=== PATIENT | female | born 1960 | race Two or more races ===

== ENCOUNTER 2025-06-24 09:02 | Emergency (ER) | payer MEDICAID, SELFPAY ==
[2025-06-24 09:13] VITALS: BP 122/70; PULSE 73; RESP 16; TEMP 36.8; O2SAT 96; BMI 33.7
--- NOTE | 2025-06-24 09:19 | PD.EDHA ---
ED Headache RME/HPI General Chief Complaint: Headache Stated Complaint: HEADACHE X 3 DAYS, VOMITING, BLEEDING ULCERS? Time Seen by Provider: 06/24/25 09:05 Arrival date/time: 06/24/25 09:02 RME / HPI RME / HPI Narrative: See [facility] for Dr. Nicholas's HPI Documentation. Related Data Previous Rx's ?Medication ?Instructions ?Recorded acetaminophen 300 mg-codeine 30 mg 2 tab PO Q8H PRN pain #20 tabs 06/24/25 tablet cefdinir 300 mg capsule 300 mg PO BID #14 caps 06/24/25 famotidine 40 mg tablet 40 mg PO .bedtime #30 tabs 06/24/25 omeprazole 40 mg capsule,delayed 40 mg PO QDAY #30 caps 06/24/25 release ondansetron 4 mg disintegrating 4 mg PO TID PRN nausea and 06/24/25 tablet vomiting 30 days #10 tabs Allergies Allergy/AdvReac Type Severity Reaction Status Date / Time No Known Allergies Allergy Verified 06/24/25 09:07 Review of Systems Review of Systems Systems Reviewed: All systems reviewed, normal except as documented Past Medical History Social History SMOKING STATUS: Never smoker SUBSTANCE USE: does not use ALCOHOL: Never ED Exam Narrative Physical exam: See [facility] for Dr. Nicholas's HPI Documentation. Course Quality Measures none Orders Category Date Time Status CT cervical spine wo con Stat Exams 06/24/25 09:[address] chest abdomen pelvis wo Stat Exams 06/24/25 09:[address] head/brain wo con Stat Exams 06/24/25 09:20 Completed US gall bladder Stat Exams 06/24/25 09:20 Completed Amylase Stat Lab 06/24/25 11:08 Completed BNP [B-Type Natriuretic Peptide] Stat Lab 06/24/25 09:36 Completed Bilirubin,Direct Stat Lab 06/24/25 11:08 Completed CBC Stat Lab 06/24/25 09:36 Completed CMP [Comprehensive Metabolic Panel] Stat Lab 06/24/25 11:08 Completed CRP [C-Reactive Protein] Stat Lab 06/24/25 11:08 Completed ESR [Sed Rate (ESR)] Stat Lab 06/24/25 09:36 Completed Hemoglobin A1C [Glycohemoglobin w (eAG)] Stat Lab 06/24/25 09:36 Completed Lipase Stat Lab 06/24/25 11:08 Completed Magnesium Stat Lab 06/24/25 11:08 Completed Procalcitonin Stat Lab 06/24/25 11:08 Completed TSH [Thyroid Stimulating Hormone] Stat Lab 06/24/25 11:08 Completed Troponin I Stat Lab 06/24/25 11:08 Completed UA, C/S IF [Urinalysis, C/S if Indicated] Stat Lab 06/24/25 09:55 Completed Urine Culture Stat Lab 06/24/25 09:55 Received ACETAMINOPHEN w/COD 300-30 [Tylenol w/Cod #3] Med 06/24/25 09:19 Discontinued 2 tab PO X1 ONE Ondansetron Odt [Zofran Odt] Med 06/24/25 09:19 Discontinued 4 mg PO X1 ONE cefTRIAXone [Rocephin] 1,000 mg Med 06/24/25 12:10 Discontinued Lidocaine 1% Pf Vial 5ml [Xylocaine 1% 5 ml] 2.1 ml IM X1 Vital Signs Vital signs: Vital Signs Temperature 98.3 F 06/24/25 09:13 Pulse Rate 73 06/24/25 09:13 Respiratory Rate 16 06/24/25 09:13 Blood Pressure 122/70 06/24/25 09:13 Pulse Oximetry (%) 96 06/24/25 09:13 Oxygen Delivery Method Room Air 06/24/25 09:13 Headache MDM Narrative MDM Narrative:: This section includes all my notes and documentations, including HPI, PE, and ED course. Leobardo Nicholas MD HPI: 65-year-old female here with several days of severe headache and abdominal pain and back pain. Has trouble localizing her abdominal pain and back pain. Has trouble describing the quality and quantity of her pain. Uncertain of exacerbating factors or relieving factors. No fever or chills. No nausea or vomiting. No speech or visual impairment. No loss of power in arms or legs. No other complaints. ROS: All negative except as documented in HPI. Physical Exam: General: Alert and oriented. No acute distress when moving still. Eyes: Conjunctivae and lids clear. EOMI. PERRL. ENT: No nasal congestion. Pharynx normal. Tympanic membrane normal bilaterally. Neck: Supple. No carotid bruit. No JVD. Heart: RRR. Lungs: No respiratory distress. Good air movement. No rhonchi, wheezing, rales. Chest: No tenderness. Abdomen: Soft and nontender. Normal bowel sounds. No distension. No rebound or guarding. Back: No CVA tenderness. Legs: No clubbing, cyanosis, edema. Skin: Warm and dry. Neuro: Alert and oriented X 3. Cranial Nerves II-XII grossly intact. No peripheral motor deficits. I reviewed all diagnostic test results: My review of the cervical CT report is no fracture. My review of the chest/abdomen/pelvis CT report is probable reflux esophagitis. My review of the head CT report is NAD. My review of the gallbladder US report is NAD. Blood tests unremarkable. UA showed leukocyte esterase, 10 RBC, 11 WBC, and 3+ bacteria. At this point, diagnoses include: Migraine headache UTI GERD Treatment here included: Zofran ODT 4 mg Two Tylenol #3 Rocephin 1 g IM Significant improvement noted. Recommended outpatient care. Based on my best medical judgment, made decision no further evaluation or treatment indicated at this time. Patient understands and agrees to the discharge instructions customized and printed, see below. Discharge instructions from Dr. Nicholas: 1. After evaluation, you were treated for migraine headache and urine infection. There is no life-threatening condition. Such as stroke or brain tumor or heart attack. 2. Take cefdinir to kill the germs causing the infection. 3. For good hydration, increase oral fluid and maintain clear urine. If dark or yellow, increase oral fluid. Zofran for nausea/vomiting. Tylenol with codeine for severe pain. Take omeprazole and famotidine as prescribed. 4. See a private doctor on 06/25/2025 for recheck. Ask to review all test results and official radiology reports, to make sure you receive all necessary follow-ups and monitoring, including final urine culture results. Ask for help with more investigation not available here in the ER, to make sure there is no other serious underlying conditions. To make sure there is no serious underlying heart condition, ask to help you get more tests for your heart that cannot be done here in the ER. Such as Holter Monitor (cardiac monitoring at home from a day to even a month), heart stress test (on treadmill or with medication), echocardiogram (imaging of your heart structures), heart catherization (checking for blockages in your heart arteries), and a referral to see a Scientific Process Operator. To make sure there is no serious intra-abdominal condition, ask for help with more investigation not available here in the ER. Such as EGD or scoping the stomach, colonoscopy or scoping the colon, and referral to see match maker. Ask for referral to see neurologist. 5. Seek immediate medical care with worsening, fever, or with any concerns. Instrucciones de lynne del Dr. Nicholas: 1. Despu?s de la evaluaci?n, se le trat? por migra?a e infecci?n urinaria. No presenta ninguna afecci?n que ponga en peligro zavaleta minnie. [place] un derrame cerebral, un tumor cerebral o un infarto. 2. [place] cefdinir para eliminar los g?rmenes que causan la infecci?n. 3. Para tomas buena hidrataci?n, aumente la ingesta de l?quidos y mantenga la orina santa. Si la orina est? oscura o amarilla, aumente la ingesta de l?quidos. Zofran para las n?useas y los v?mitos. Tylenol con code?na para el dolor intenso. [place] omeprazol y famotidina seg?n lo recetado. 4. Consulte con un m?dico privado el 06/25/2025 para tomas revisi?n. Solicite revisar todos los resultados de las pruebas y los informes radiol?gicos oficiales para asegurarse de recibir todo el seguimiento y la monitorizaci?n necesarios, incluidos los resultados finales del cultivo de orina. Solicite ayuda para realizar m?s investigaciones que no est?n disponibles aqu? en la brigitte de emergencias, para asegurarse de que no existan otras afecciones subyacentes graves. Para descartar tomas afecci?n card?forrest subyacente grave, solicite que le realicen m?s pruebas card?acas que no se pueden realizar aqu? en la brigitte de emergencias. [place] un monitor Holter (monitorizaci?n card?forrest en casa lashay un d?a o incluso un mes), tomas prueba de esfuerzo card?aco (en cinta de correr o con medicaci?n), un ecocardiograma (im?genes de las estructuras del coraz?n), un cateterismo card?aco (para detectar obstrucciones en las arterias del coraz?n) y tomas derivaci?n a un cardi?logo. Para descartar tomas afecci?n intraabdominal grave, solicite ayuda para realizar m?s investigaciones que no est?n disponibles aqu? en la brigitte de emergencias. [place] tomas endoscopia digestiva lynne o tomas colonoscopia, y tomas derivaci?n a un gastroenter?logo. Solicite tomas derivaci?n a un neur?logo. 5. Busque atenci?n m?dica inmediata si los s?ntomas empeoran, si tiene fiebre o si tiene alguna otra preocupaci?n. Leobardo Nicholas MD Patient data External records reviewed:: [facility] previous records Clinical information provided by:: patient Social determinants that could affect healthcare access:: none Patient has the following chronic illnesses:: Denies any PMHx, surgeries, daily medications, or known allergies. How is presenting disease/condition affected by chronic disease/condition?: no chronic disease Evaluation data The following diagnostics were reviewed and interpreted by me:: lab results and radiology exam(s) Lab and/or radiology exams considered but not ordered:: none Interpretation Summary: I reviewed all diagnostic test results: My review of the cervical CT report is no fracture. My review of the chest/abdomen/pelvis CT report is probable reflux esophagitis. My review of the head CT report is NAD. My review of the gallbladder US report is NAD. Blood tests unremarkable. UA showed leukocyte esterase, 10 RBC, 11 WBC, and 3+ bacteria. Medications / Prescriptions Medications or Prescriptions considered but not ordered:: none Medication administrations:: Medication Administration History Discontinued Medications Acetaminophen/Codeine Phosphate (Acetaminophen W/Cod 300-30 Tablet) 2 tab PO X1 ONE Stop: 06/24/25 09:20 Last Admin: 06/24/25 09:25 Dose: 2 tab Documented By: KARLA Ceftriaxone Sodium 1,000 mg/ (Lidocaine HCl 2.1 ml) 0 mg IM X1 ONE Stop: 06/24/25 12:11 Last Admin: 06/24/25 12:49 Dose: 1,000 mg Documented By: KARLA Ondansetron HCl (Ondansetron Odt 4 Mg Tabrap) 4 mg PO X1 ONE; Protocol Stop: 06/24/25 09:20 Last Admin: 06/24/25 09:25 Dose: 4 mg Documented By: KARLA Treatment here included: Zofran ODT 4 mg Two Tylenol #3 Rocephin 1 g IM Consultations Consultation(s) initiated? (list below): No Diagnosis Differential diagnosis headache: migraine, tension headache, subarachnoid hemorrhage, headache and sinusitis Most likely diagnosis given after review of the tests above:: Migraine headache UTI GERD Admission Indicated Admission indicated?: not indicated Explain why admission is indicated or not indicated:: With significant improvement and no condition needing emergent intervention, there was no indication for admission. Admission Request Was there a request for admission?: No Disposition Plan Disposition Plan: Discharge Discharge Attestation Discharge Attestation: The patient and all family members were given an opportunity to ask questions and understood the discharge instructions. Discharge instructions specifically effects, indications for sooner follow up or return to the emergency department, and the expected course of current diagnosis. Patient condition: Stable Discharge Plan Plan Patient Disposition: HOME (Self Care) Prescriptions/Referrals Prescriptions/Med Rec: New acetaminophen-codeine 300-30 mg tablet 2 tab PO Q8H MDD 6 PRN (Reason: pain) Qty: 20 0RF ondansetron 4 mg tablet,disintegrating 4 mg PO TID PRN (Reason: nausea and vomiting) 30 Days Qty: 10 0RF cefdinir 300 mg capsule 300 mg PO BID Qty: 14 0RF famotidine 40 mg tablet 40 mg PO .bedtime Qty: 30 0RF omeprazole 40 mg capsule,delayed release(DR/EC) 40 mg PO QDAY Qty: 30 0RF Referrals: Aletha Redman DIRECTOR PHARMACEUTICAL [Primary Care Provider] - In 1 week Problem List Clinical Impression: Migraine headache, UTI (urinary tract infection), GERD (gastroesophageal reflux disease) Patient/Caregiver Discharge Instructions Discharge Activity: activity as tolerated Education Materials: ED GERD (Adult), ED Headache, Migraine, Classic, ED CYSTITIS Female Adult Additional Instructions: Discharge instructions from Dr. Nicholas: 1. After evaluation, you were treated for migraine headache and urine infection. There is no life-threatening condition. Such as stroke or brain tumor or heart attack. 2. Take cefdinir to kill the germs causing the infection. 3. For good hydration, increase oral fluid and maintain clear urine. If dark or yellow, increase oral fluid. Zofran for nausea/vomiting. Tylenol with codeine for severe pain. Take omeprazole and famotidine as prescribed. 4. See a private doctor on 06/25/2025 for recheck. Ask to review all test results and official radiology reports, to make sure you receive all necessary follow-ups and monitoring, including final urine culture results. Ask for help with more investigation not available here in the ER, to make sure there is no other serious underlying conditions. To make sure there is no serious underlying heart condition, ask to help you get more tests for your heart that cannot be done here in the ER. Such as Holter Monitor (cardiac monitoring at home from a day to even a month), heart stress test (on treadmill or with medication), echocardiogram (imaging of your heart structures), heart catherization (checking for blockages in your heart arteries), and a referral to see a Scientific Process Operator. To make sure there is no serious intra-abdominal condition, ask for help with more investigation not available here in the ER. Such as EGD or scoping the stomach, colonoscopy or scoping the colon, and referral to see match maker. Ask for referral to see neurologist. 5. Seek immediate medical care with worsening, fever, or with any concerns. Instrucciones de lynne del Dr. Nicholas: 1. Despu?s de la evaluaci?n, se le trat? por migra?a e infecci?n urinaria. No presenta ninguna afecci?n que ponga en peligro zavaleta minnie. [place] un derrame cerebral, un tumor cerebral o un infarto. 2. [place] cefdinir para eliminar los g?rmenes que causan la infecci?n. 3. Para tomas buena hidrataci?n, aumente la ingesta de l?quidos y mantenga la orina santa. Si la orina est? oscura o amarilla, aumente la ingesta de l?quidos. Zofran para las n?useas y los v?mitos. Tylenol con code?na para el dolor intenso. [place] omeprazol y famotidina seg?n lo recetado. 4. Consulte con un m?dico privado el 06/25/2025 para tomas revisi?n. Solicite revisar todos los resultados de las pruebas y los informes radiol?gicos oficiales para asegurarse de recibir todo el seguimiento y la monitorizaci?n necesarios, incluidos los resultados finales del cultivo de orina. Solicite ayuda para realizar m?s investigaciones que no est?n disponibles aqu? en la brigitte de emergencias, para asegurarse de que no existan otras afecciones subyacentes graves. Para descartar tomas afecci?n card?forrest subyacente grave, solicite que le realicen m?s pruebas card?acas que no se pueden realizar aqu? en la brigitte de emergencias. [place] un monitor Holter (monitorizaci?n card?forrest en casa lashay un d?a o incluso un mes), tomas prueba de esfuerzo card?aco (en cinta de correr o con medicaci?n), un ecocardiograma (im?genes de las estructuras del coraz?n), un cateterismo card?aco (para detectar obstrucciones en las arterias del coraz?n) y tomas derivaci?n a un cardi?logo. Para descartar tomas afecci?n intraabdominal grave, solicite ayuda para realizar m?s investigaciones que no est?n disponibles aqu? en la brigitte de emergencias. [place] tomas endoscopia digestiva lynne o tomas colonoscopia, y tomas derivaci?n a un gastroenter?logo. [place] tomas derivaci?n a un neur?logo. 5. Busque atenci?n m?dica inmediata si los s?ntomas empeoran, si tiene fiebre o si tiene alguna otra preocupaci?n. Print Language: [place] Stand Alone Forms: Jamila Award Info., Patient Portal Info Letter
--- NOTE | 2025-06-24 09:20 | XR_ITS ---
Examination: CT cervical spine without contrast 2-D sagittal reconstructions 2-D coronal reconstructions 3-D reconstructions. Exam date and time: June 24, 2025, 1008 hours INDICATIONS: Severe neck pain beginning 3 days ago CTDI:vol (mGy) 16.5 DLP: (mGycm) 308 Technique: Multiple 2 mm axial sections of the cervical spine have been obtained. The coronal and sagittal reconstructions have been obtained. 3-D reconstructions have been obtained. Low dose protocols were performed. One or more of the following dose reduction techniques were used; automated exposure control, adjustment of the mA and/or KV according to patient size, use of iterative reconstruction technique. Findings: Axial sections demonstrate intact base of the skull. C1 exhibit satisfactory relationship to the odontoid. No acute cervical vertebral body fracture seen. Alignment posterior spinous processes satisfactory. No focal disc protrusion or significant neural foraminal stenosis Impression: No acute cervical fracture. No focal disc protrusion or significant neural foraminal stenosis Consider MRI cervical spine without contrast follow-up
--- NOTE | 2025-06-24 09:20 | XR_ITS ---
Examination: CT chest, without intravenous contrast. CT abdomen, without intravenous contrast. CT pelvis, without intravenous contrast. 2-D sagittal and coronal reconstructions. 3-D reconstructions. Date and time of exam: June 24, 2025, 1011 hours INDICATIONS: Gastrointestinal bleeding, chest and abdominal pain today CTDI vol (mgy) 13.9 DLP (MGycm) 909 Technique: Multiple CT images, 3.0 mm slice thickness, obtained chest, abdomen, pelvis, with the high-resolution 64 slice scanner.. Sagittal and coronal 2-D reconstructions are obtained. 3-D reconstructions Low dose protocols were performed. One or more of the following dose reduction techniques were used; automated exposure control, adjustment of the mA and/or KV according to patient size, use of iterative reconstruction technique. Findings: Fluid distended esophagus No thoracic aortic aneurysmal dilatation Pulmonary artery segments are not enlarged. No paratracheal tracheobronchial or bronchopulmonary adenopathy No pneumonia, pulmonary edema or pleural disease Retrocardiac gastric hernia with thickening of the mucosa at the gastroesophageal junction Severe fatty infiltration throughout the liver, liver is irregular in contour No splenic or focal liver lesion No pancreatic or adrenal mass Mild renal scar formation, no renal or ureteral calculi, no hydronephrosis Small fat-containing umbilical hernia Normal appendix Colonic diverticulosis, no diverticulitis Atrophic uterus Contracted urinary bladder Prominent osteopenia Grade 1 spondylolisthesis L5 on S1 IMPRESSION: Fluid distended esophagus with mucosal thickening at the gastro esophageal junction, consider reflux esophagitis and stricture at the gastroesophageal junction Recommend elective standard fluoroscopically guided esophagram follow-up No pneumonia, pulmonary edema or pleural disease Severe diffuse fatty infiltration throughout the liver Suspicious for primary hepatocellular disease versus cirrhosis Mild renal scar formation Normal appendix No bowel obstruction diverticulitis or free air
--- NOTE | 2025-06-24 09:20 | XR_ITS ---
Examination: CT brain head without contrast. 2-D sagittal coronal reconstructions Date and time of exam: June 24, 2025, 1008 hours INDICATIONS: Severe headache 3 days CTDI: vol (mGy): 45.7 DLP: (mGycm): 851 Technique: Multiple CT axial sections of the brain have been obtained, 5 mm slice thickness. Contrast has not been administered. 2-D sagittal, coronal reconstructions have been obtained Low dose protocols were performed. One or more of the following dose reduction techniques were used; automated exposure control, adjustment of the mA and/or KV according to patient size, use of iterative reconstruction technique. Findings: No significant ventricular enlargement. Intra-axial or extra-axial hemorrhage density is not seen. No mass effect or midline shift Basal cisterns are not remarkable. Fourth ventricle is midline. Cranial vault intact. Impression: Negative for acute hemorrhage, mass effect or midline shift As clinically warranted, if symptoms persist, consider MRI brain without contrast follow-up
--- NOTE | 2025-06-24 09:20 | XR_ITS ---
Examination: Abdomen sonogram, Limited Date and time of exam: June 24, 2025, 10:33 a.m. INDICATIONS: Vomiting right upper abdominal pain beginning 3 days ago Technique: Real-time hendrix scale transabdominal sonographic images of the upper abdomen obtained. Findings: Normal gallbladder Normal common bile duct 0.2 cm Pancreatic head 2.3 cm Liver 14.3 cm fatty infiltration Normal hepatopetal portal venous flow Patent IVC IMPRESSION: Normal gallbladder Normal common bile duct
[2025-06-24] MEDS: ACETAMINOPHEN w/COD 300-30 TABLET 2 TAB PO (09:25)
[2025-06-24] MEDS: ONDANSETRON ODT 4 MG TABRAP PO (09:25)
[2025-06-24 09:49] LABS: Basophils # (Auto) 0.0 Thou/mm3 (0.0-0.2); Basophils % (Auto) 0 % (0-2.5); Eosinophils # (Auto) 0.1 Thou/mm3 (0.0-0.5); Eosinophils % (Auto) 2 % (0-10); Hematocrit 45.0 % (36.0-46.0); Hemoglobin 14.7 g/dL (12.0-16.0); Immature Granulocytes Auto 0.01 Thou/mm3 (0.00-0.00); Lymphocytes # (Auto) 1.3 Thou/mm3 (1.0-4.8); Lymphocytes % (Auto) 27 % (10-50); Mean Corpuscular HGB Conc 32.7 g/dl (31.0-37.0); Mean Corpuscular Hemoglobin 26.5 pg (25.0-35.0); Mean Corpuscular Volume 81 fL (80-100); Monocytes # (Auto) 0.4 Thou/mm3 (0.0-0.8); Monocytes % (Auto) 9 % (0-12); Neutrophils # (Auto) 2.9 Thou/mm3 (1.8-7.7); Neutrophils % (Auto) 62 % (37-80); Nucleated Red Blood Cell # 0.00 Thou/mm3 (0.00-0.00); Nucleated Red Blood Cell % 0 /100 WBC (0); Platelet Count 201 Thou/mm3 (140-440); RDW Standard Deviation 40.5 fL (36.4-46.3); Red Blood Count 5.55 Miln/mm3 (4.00-5.20); White Blood Count 4.8 Thou/mm3 (3.6-11.0)
[2025-06-24 09:54] LABS: Glucose Estimated Average 123 mg/dL (80-131); Hemoglobin A1C 5.9 % Hgb (4.8-6.0)
[2025-06-24 10:03] LABS: B-Type Natriuretic Peptide 52 pg/mL (0-100)
[2025-06-24 10:05] LABS: Collection Type, Urine Clean Catch
--- NOTE | 2025-06-24 10:11 | PC.NURSE ---
CALLED PT FOR PAIN ASSESSMENT AFTER MED. NO ANSWER.
--- NOTE | 2025-06-24 10:50 | PC.NURSE ---
PT IN PROCEDURES SO UNABLE TO ASSESS PAIN.
[2025-06-24 11:30] LABS: Thyroid Stimulating Hormone 1.87 uIU/mL (0.55-4.78); Troponin I < 0.020 ng/mL (0.0-0.045)
[2025-06-24 11:32] LABS: Bacteria,Urine 3+; Bilirubin,Urine Negative (Negative); Blood,Urine 1+ (Negative); Clarity,Urine Turbid (Clear/Hazy); Color,Urine Yellow (Lt Yel-Yel); Glucose, Urine Negative (Negative); Ketones,Urine 1+ (Negative); Leukocyte Esterase,Urine Positive (Negative); Nitrite,Urine Positive (Negative); PH,Urine 7.0 (5.0-7.0); Protein,Urine Trace (Neg - Trace); RBC,Urine 10 /hpf (0-3); Specific Gravity,Urine 1.020 (1.001-1.035); Squamous Epithelial Cell,Urine 2 /hpf (0-5); Urobilinogen,Urine Negative mg/dL (0.0-1.0); WBC,Urine 11 /hpf (0-5)
[2025-06-24 11:38] LABS: Culture Indicated,Urine Yes
[2025-06-24 11:59] LABS: Alanine Aminotransferase 41 U/L (10-49); Albumin, Serum 4.8 gm/dL (3.4-4.8); Albumin/Globulin Ratio 1.7 (1.2-2.2); Alkaline Phosphatase 89 U/L (46-116); Amylase 36 U/L (30-118); Anion Gap 9 (7-16); Aspartate Amino Transferase 30 U/L (0-34); BUN/Creatinine Ratio 18 Ratio (12-20); Bilirubin,Direct 0.3 mg/dL (0.0-0.3); Bilirubin,Total 1.1 mg/dL (0.3-1.2); Blood Urea Nitrogen 16 mg/dL (9-23); C-Reactive Protein < 0.5 mg/dL (0.0-0.9); Calcium 9.7 mg/dL (8.3-10.6); Calcium (Corrected) 9.7 mg/dL (8.5-10.1); Carbon Dioxide 29.5 mMol/L (20.0-31.0); Chloride 107 mMol/L (98-107); Creatinine (Component) 0.9 mg/dL (0.6-1.3); Estimated Creatinine Clearance 56.0 mL/min (>60); Globulin 2.9 gm/dL (2.3-3.5); Glucose 98 mg/dL (74-106); Lipase 28 U/L (12-53); Magnesium 2.0 mg/dL (1.6-2.6); Osmolality,Calculated 289 (275-295); Potassium 4.3 mMol/L (3.4-5.1); Procalcitonin 0.07 ng/ml (0.0-0.49); Sodium 145 mMol/L (136-145); Total Protein 7.7 gm/dL (5.7-8.2); eGFR > 60 See Note
[2025-06-24 12:14] LABS: Sed Rate (ESR) 18 mm/hr (0-30)
[2025-06-24 13:15] VITALS: BP 124/76; PULSE 87; RESP 14; TEMP 36.6; O2SAT 98
== END 2025-06-24 13:16 | disposition home or self-care (01) ==
PROVIDERS: Emergency Provider Emergency Medicine; PCP Nurse Practitioner Women's Health
DX: G43.909 Migraine, unspecified, not intractable, without status migrainosus (principal); N39.0 Urinary tract infection, site not specified; K21.9 Gastro-esophageal reflux disease without esophagitis; M54.2 Cervicalgia; R07.9 Chest pain, unspecified
CPT/HCPCS: 36415; 70450; 71250; 72125; 74176; 76705; 80053; 81001; 82150; 82248; 83036; 83690; 83735; 83880; 84145; 84443; 84484; 85025; 85652; 86140; 87077; 87086; 87186; 96372; 99283; J0696; J3490; Q0162; A9270